=== PATIENT | male | born 1985 | race Caucasian/White ===

== ENCOUNTER 2017-12-29 10:26 | Emergency (ER) | payer OTHER ==
[2017-12-29] MEDS: ALBUTEROL SULFATE 2.5 MG/0.5 ML INH NEB SOLN NEB (11:05)
[2017-12-29] MEDS: predniSONE 20 MG TAB PO (11:22)
== END 2017-12-29 12:45 | disposition home or self-care (01) ==
LOC: M ED 10:26
DX: R05 Cough (principal); R06.2 Wheezing; L30.9 Dermatitis, unspecified; L21.9 Seborrheic dermatitis, unspecified; Z79.899 Other long term (current) drug therapy
CPT/HCPCS: 71046